=== PATIENT | female | born 1965 | race Caucasian/White ===

== ENCOUNTER → 2018-11-24 11:24 | Outpatient (CLI) | payer MEDICARE ==
[2012-01-03 07:56] VITALS: BMI 26.7
== END | disposition home or self-care (01) ==
LOC: D.NM 11:24
DX: K21.9 Gastro-esophageal reflux disease without esophagitis (principal); R11.2 Nausea with vomiting, unspecified; R10.10 Upper abdominal pain, unspecified; K59.09 Other constipation